=== PATIENT | male | born 1975 | race Caucasian/White ===

== ENCOUNTER 2024-01-06 07:13 | Day surgery (SDC) | payer BC, OTHER ==
[2024-01-06] MEDS: Lactated Ringers 1,000 ML IV SCH (07:33)
[2024-01-06] MEDS ORDERED: propofoL 50 ML ONE (08:09)
[2024-01-06] MEDS ORDERED: dexmedeTOMIDine HCl 200 MCG/2 ML SDV ONE (09:02)
[2024-01-06] MEDS ORDERED: Water For Injection, Sterile 20 ML ONE (09:02)
[2024-01-06 09:42] VITALS: BP 113/79
[2024-01-06 09:51] VITALS: PULSE 56
== END 2024-01-06 09:50 | disposition home or self-care (01) ==
LOC: MW.SDS 07:13
PROVIDERS: ATTEND Surgery
DX: Z12.11 Encounter for screening for malignant neoplasm of colon (principal); K64.9 Unspecified hemorrhoids; Z79.899 Other long term (current) drug therapy
CPT/HCPCS: J2704; J3490; J7120